=== PATIENT | female | born 1970 | race African-American/Black ===

== ENCOUNTER 2023-07-22 12:40 | Emergency (ER) | payer OTHER ==
[2023-07-22] MEDS ORDERED: MORPHINE 4 MG/ML SYR ONE (12:58)
[2023-07-22 13:16] LABS: Absolute Basophils 0.1 K/uL (0-0.5); Absolute Eosinophils 0.1 K/uL (0-0.5); Absolute Lymphocytes (CBC) 2.2 K/uL (0.7-4.9); Absolute Monocytes 0.4 K/uL (0.1-1.3); Absolute Neutrophil 1.6 K/uL (1.8-8.0); Basophils % 1.4 % (0-1.3); Eosinophils % 1.4 % (0-4.4); Hematocrit 37.8 % (36.0-45.0); Hemoglobin 12.6 g/dL (12.0-15.0); Lymphocytes % 50.8 % (15.3-44.8); MCH 28.8 pg (27.0-35.0); MCHC 33.4 g/dL (32.0-36.0); MCV 86.1 fL (80-100); MPV 7.6 fL (7.6-11.3); Monocytes % 9.5 % (3.3-12.3); Neutrophils % 36.9 % (41.7-73.7); Nucleated Red Blood Cells % 0.3 % (0-0); Platelets 324 thou/uL (152-406); RBC Red Blood Cell Count 4.38 M/uL (3.86-4.86); Red Cell Distribution Width 14.5 % (12.1-15.2)
[2023-07-22 13:39] LABS: Anion Gap 7.7 mEq/L (5.0-15.0); Potassium 3.7 mEq/L (3.5-5.1); Troponin High Sensitivity 4.1 pg/mL (<58.9)
--- NOTE | 2023-07-22 14:22 | RAD REPORT ---
EXAM DESCRIPTION: Fabiola Single View07/22/2023 1:31 pm CLINICAL HISTORY: CHEST PAIN COMPARISON: No comparisons TECHNIQUE: Portable AP view of the chest. FINDINGS: The lungs are clear. No pneumothorax or effusion. The cardiomediastinal contours are unre markable. IMPRESSION: No acute cardiopulmonary process.
[2023-07-22] MEDS ORDERED: ONDANSETRON 4 MG/2 ML VIAL ONE (14:28)
--- NOTE | 2023-07-22 15:33 | ER ---
Nurse's Notes [facility] Name: Sarah Henriquez Age: 52 yrs Sex: Female : 1970 Arrival Date: 07/22/2023 Time: 12:40 Bed 20 Private MD: Diagnosis: Chest pain, unspecified Presentation: 07/21 12:50 Chief complaint: Patient states: "I started having Right sided chest pain and right arm mb9 tingling 10pm last night. Nothing is making it feel better. I feel SOB and dizzy.". Coronavirus screen: Vaccine status: Patient reports being unvaccinated. Ebola Screen: No symptoms or risks identified at this time. Initial Sepsis Screen: Does the patient meet any 2 criteria? No. Patient's initial sepsis screen is negative. Does the patient have a suspected source of infection? No. Patient's initial sepsis screen is negative. Risk Assessment: Do you want to hurt yourself or someone else? Patient reports no desire to harm self or others. Onset of symptoms was July 22, 2023. 12:50 Method Of Arrival: Ambulatory mb9 12:50 Acuity: DENA 2 mb9 Triage Assessment: 12:52 General: Appears uncomfortable, Behavior is cooperative. Pain: Complains of pain in mb9 chest Pain radiates to right side Pain currently is 10 out of 10 on a pain scale. Quality of pain is described as throbbing, Pain began suddenly. EENT: No signs and/or symptoms were reported regarding the EENT system. Neuro: Mckeon Agitation-Sedation Scale (RASS): 0 - Alert and Calm Level of Consciousness is awake, alert, obeys commands, Oriented to person, place, time, situation, Appropriate for age. Neuro: [employer] are equal bilaterally Moves all extremities. Gait is steady, Speech is normal, Facial symmetry appears normal, Pupils are PERRLA, Tingling in right arm Reports paresthesias in right arm. Cardiovascular: Heart tones S1 S2 present Patient's skin is warm and dry. Respiratory: Reports shortness of breath Airway is patent Respiratory effort is even, unlabored, Respiratory pattern is regular, symmetrical, Breath sounds are clear bilaterally. GI: No signs and/or symptoms were reported involving the gastrointestinal system. : No signs and/or symptoms were reported regarding the genitourinary system. Derm: Skin is pink, warm \\T\\ dry. Musculoskeletal: Range of motion: intact in all extremities. Historical: - Allergies: 12:51 tramadol; mb9 - PMHx: 12:51 Hypertensive disorder; mb9 - PSHx: 12:51 partial hysterectomy; mb9 - Immunization history:: Adult Immunizations up to date. - Infectious Disease History:: Denies. - Social history:: Smoking status: Patient denies any tobacco usage or history of. Screenin:52 [facility] ED Fall Risk Assessment (Adult) History of falling in the last 3 months, mb9 including since admission No falls in past 3 months (0 pts) Confusion or Disorientation No (0 pts) Intoxicated or Sedated No (0 pts) Impaired Gait No (0 pts) Mobility Assist Device Used No (0 pt) Altered Elimination No (0 pt) Score/Fall Risk Level 0 - 2 = Low Risk Oriented to surroundings, Maintained a safe environment, Educated pt \\T\\ family on fall prevention, incl call for assistance when getting out of bed. Abuse screen: Denies threats or abuse. Nutritional screening: No deficits noted. Tuberculosis screening: No symptoms or risk factors identified. Assessment: 12:54 Reassessment: see triage assessment. mb9 14:11 Reassessment: No changes from previously documented assessment. Patient and/or family mb9 updated on plan of care and expected duration. Pain level reassessed. Patient is alert, oriented x 3, equal unlabored respirations, skin warm/dry/pink. 15:30 Reassessment: Patient appears in no apparent distress at this time. No changes from mb9 previously documented assessment. Patient and/or family updated on plan of care and expected duration. Pain level reassessed. Patient is alert, oriented x 3, equal unlabored respirations, skin warm/dry/pink. Vital Signs: 12:50 BP 172 / 96; Pulse 67; Resp 18; Temp 98; Pulse Ox 100% ; Weight 65.77 kg; Height 5 ft. mb9 4 in. ; Pain 10/10; 14:11 BP 161 / 89; Pulse 60; Resp 16; Pulse Ox 99% on R/A; mb9 15:09 BP 157 / 88; Pulse 60; Resp 15; Pulse Ox 100% on R/A; mb9 12:50 Body Mass Index 24.89 (65.77 kg, 162.56 cm) mb9 12:50 Pain Scale: Adult mb9 ED Course: 12:40 Missed attempt(s): 22 gauge in left forearm. Bleeding controlled, band aid applied, mb9 catheter tip intact. 12:41 Patient arrived in ED. im 12:41 Mirza Luong MD is Attending Physician. ec2 12:41 Jennifer Mcclure, PAMELLA is Primary Nurse. mb9 12:45 EKG done, by ED staff, reviewed by Mirza Luong MD. mb9 12:45 Initial lab(s) drawn, by va, sent to lab. Inserted saline lock: 22 gauge in right mb9 forearm, using aseptic technique. Blood collected. 12:45 Missed attempt(s): 22 gauge in left forearm. Bleeding controlled, band aid applied, rs5 catheter tip intact. 12:50 Missed attempt(s): 22 gauge in right antecubital area. Bleeding controlled, band aid rs5 applied, catheter tip intact. 12:51 Triage completed. mb9 12:52 Arm band placed on. mb9 12:54 Placed in gown. Bed in low position. Call light in reach. Side rails up X 1. Provided mb9 Education on: press call light if needing anything. Client placed on continuous cardiac and pulse oximetry monitoring. NIBP monitoring applied. cardiac monitor on. Door closed. Noise minimized. Warm blanket given. 13:11 No provider procedures requiring assistance completed. mb9 13:33 XRAY Chest (1 view) In Process Unspecified. EDMS 14:48 EKG done, by ED staff, reviewed by Mirza Luong MD. mb9 15:40 IV discontinued, intact, bleeding controlled, No redness/swelling at site. Pressure mb9 dressing applied. Administered Medications: 13:10 Drug: morphine IVP or IV 4 mg IVP once over 4 mins Route: IVP; Infused Over: 4 mins; mb9 Site: right forearm; 14:21 Follow up: Response: No adverse reaction mb9 14:33 Drug: Ondansetron IVP 4 mg IVP once; over 2 minutes Route: IVP; Site: right forearm; mb9 15:41 Follow up: Response: No adverse reaction mb9 Medication: 12:55 VIS not applicable for this client. mb9 Outcome: 15:32 Discharge ordered by . ec2 15:40 Discharged to home ambulatory, with family, mb9 15:40 Condition: stable 15:40 Discharge instructions given to patient, family, Instructed on discharge instructions, follow up and referral plans. Demonstrated understanding of instructions, follow-up care, 15:41 Patient left the ED. mb9 Signatures: Dispatcher [employer] Jennifer Castillo RN RN mb9 Kali Trujillo RN RN rs5 Dacia Donaldson Edwin, MD MD ec2 Corrections: (The following items were deleted from the chart) 12:52 12:51 PSHx: Total abdominal hysterectomy; mb9 mb9 13:12 12:45 Missed attempt(s): 22 gauge in left forearm. rs5 rs5
--- NOTE | 2023-07-22 15:33 | EDPHYS ---
Physician Documentation [facility] Name: Sarah Henriquez Age: 52 yrs Sex: Female : 1970 Arrival Date: 07/22/2023 Time: 12:40 Bed 20 Private MD: ED Physician Mirza Luong HPI: 07/21 12:58 This 52 yrs old Female presents to ER via Ambulatory with complaints of Chest Pain, ec2 Shortness Of Breath, Dizziness. 12:58 Patient arrives today for evaluation of right-sided chest pain onset of last night. ec2 Patient reports pain is worse with movement and worse with pressing on the area. Patient reports some associated shortness of breath due to the pain. Patient reports of ACS, reports history of hypertension. Also reports history of anxiety.. Historical: - Allergies: 12:51 tramadol; mb9 - PMHx: 12:51 Hypertensive disorder; mb9 - PSHx: 12:51 partial hysterectomy; mb9 - Immunization history:: Adult Immunizations up to date. - Infectious Disease History:: Denies. - Social history:: Smoking status: Patient denies any tobacco usage or history of. ROS: 12:58 Constitutional: as per hpi ec2 Exam: 12:58 Constitutional: GEN: NAD Head: atraumatic Eyes: EOMI Ears: External ears are ec2 normal. CV: regular rate LUNGS: no respiratory distress ABD: non-distended SKIN: no evidence of rashes MSK: no evidence of trauma, reproducible upper chest wall TTP without deformities or crepitus appreciated. NEURO: moves all extremities equally Vital Signs: 12:50 BP 172 / 96; Pulse 67; Resp 18; Temp 98; Pulse Ox 100% ; Weight 65.77 kg; Height 5 ft. mb9 4 in. ; Pain 10/10; 14:11 BP 161 / 89; Pulse 60; Resp 16; Pulse Ox 99% on R/A; mb9 15:09 BP 157 / 88; Pulse 60; Resp 15; Pulse Ox 100% on R/A; mb9 12:50 Body Mass Index 24.89 (65.77 kg, 162.56 cm) mb9 12:50 Pain Scale: Adult mb9 MDM: 12:41 Patient medically screened. ec2 12:58 Data reviewed: vital signs. ED course: Patient arrives today for right upper chest wall ec2 pain. Examination remarkable for well-appearing nontoxic dividual is otherwise in no acute distress. EKG obtained, independently reviewed and interpreted by me, shows normal sinus rhythm, rate of 60, no acute ST segment elevations, intervals are nonconcerning. Will obtain lab work, chest x-ray. Evaluate for processes such as ACS, anemia initially costochondritis. Doubt PE, doubt dissection. will give the patient morphine for pain.. 13:41 ED course: Metabolic profile shows appropriate electrolytes and renal function. CBC is ec2 reassuring. BNP minimally elevated at 290. Troponin is within normal ranges at 4.1. . 14:23 ED course: Chest x-ray independently reviewed and interpreted by me, shows no acute ec2 process. . 14:23 ED course: Pending repeat EKG and troponin.. ec2 14:53 ED course: Repeat EKG independently reviewed and interpreted by me, shows normal sinus ec2 rhythm, rate of 52, no acute ST segment elevations, intervals are nonconcerning, will compared to initial EKG, appears grossly unchanged.. 15:31 ED course: Repeat troponin is unchanged. Will discharge home, to have patient follow-up ec2 with primary care doctor. Return precautions given.. 0512 12:41 Order name: Basic Metabolic Panel; Complete Time: 13:40 ec2 07/21 12:41 Order name: CBC with Diff; Complete Time: 13:40 ec2 07/21 12:41 Order name: NT PRO-BNP; Complete Time: 13:40 ec2 07/21 12:41 Order name: Troponin HS; Complete Time: 13:40 ec2 07/21 14:21 Order name: Troponin High Sensitivity; Complete Time: 15:30 mb9 07/21 12:41 Order name: XRAY Chest (1 view); Complete Time: 14:23 ec2 07/21 12:41 Order name: Cardiac monitoring; Complete Time: 12:55 ec2 07/21 12:41 Order name: EKG - Nurse/Tech; Complete Time: 12:55 ec2 07/21 12:41 Order name: IV Saline Lock; Complete Time: 13:10 ec2 07/21 12:41 Order name: Labs collected and sent; Complete Time: 13:10 ec2 07/21 12:41 Order name: O2 Per Protocol; Complete Time: 12:55 ec2 07/21 12:41 Order name: O2 Sat Monitoring; Complete Time: 12:55 ec2 07/21 12:55 Order name: Misc. Order: repeat ekg/trop at 1445; Complete Time: 14:48 ec2 07/21 14:43 Order name: EKG - Nurse/Tech; Complete Time: 14:48 ec2 Administered Medications: 13:10 Drug: morphine IVP or IV 4 mg IVP once over 4 mins Route: IVP; Infused Over: 4 mins; mb9 Site: right forearm; 14:21 Follow up: Response: No adverse reaction mb9 14:33 Drug: Ondansetron IVP 4 mg IVP once; over 2 minutes Route: IVP; Site: right forearm; mb9 15:41 Follow up: Response: No adverse reaction mb9 Disposition Summary: 07/22/23 15:32 Discharge Ordered Notes: Location: Home ec2 Condition: Stable ec2 Diagnosis - Chest pain, unspecified ec2 Followup: ec2 - With: Private Physician - When: - Reason: Re-evaluation by your physician Discharge Instructions: - Discharge Summary Sheet ec2 - Nonspecific Chest Pain, Adult ec2 Forms: - Medication Reconciliation Form ec2 - Antibiotic Education ec2 - Prescription Opioid Use ec2 - Patient Portal Instructions ec2 - Leadership Thank You Letter ec2 Signatures: Dispatcher [employer] Jennifer Castillo RN RN mb9 Mirza Luong MD MD ec2 Corrections: (The following items were deleted from the chart) 12:42 12:42 Chest Single View+[email or web address] ordered. TOYA EDMS 12:52 12:51 PSHx: Total abdominal hysterectomy; cindy [email or web address]
[2023-07-22 15:51] VITALS: BP 157/88; TEMP 98; O2SAT 100
--- NOTE | 2023-07-23 13:19 | EKG ---
Test Date: 2023-07-22 Test Time: 14:45:14 Property Disposal Officer: LUISANA MEASUREMENT RESULTS: Intervals: Rate: 52 PA: 178 QRSD: 72 QT: 440 QTc: 409 [place]: P: 63 PA: 178 QRS: 48 T: 44 INTERPRETIVE STATEMENTS: Sinus bradycardia Low voltage QRS Borderline ECG Compared to ECG 07/22/2023 12:46:18 Sinus rhythm no longer present Electronically Signed On 07-23-23 13:17:09 CDT by Niko Butt
--- NOTE | 2023-07-23 13:19 | EKG ---
Test Date: 2023-07-22 Test Time: 12:46:18 Financial Analysis Advisor: MB MEASUREMENT RESULTS: Intervals: Rate: 60 NH: 168 QRSD: 64 QT: 410 QTc: 410 [place]: P: 67 NH: 168 QRS: 53 T: 69 INTERPRETIVE STATEMENTS: Normal sinus rhythm Low voltage QRS Borderline ECG No previous ECG available for comparison Electronically Signed On 07-23-23 13:17:13 CDT by Niko Butt
== END 2023-07-22 15:41 | disposition home or self-care (01) ==
LOC: ER 12:40
DX: R07.9 Chest pain, unspecified (principal); R42 Dizziness and giddiness; I10 Essential (primary) hypertension; Z88.5 Allergy status to narcotic agent
CPT/HCPCS: 93005 ×2; 85025; 80048; 36415; 84484 ×2; 83880; 71045; 96375; 96374; 99285; J2405